=== PATIENT | male | born 1940 | race Caucasian/White ===

== ENCOUNTER → 2018-11-13 09:35 | Outpatient (CLI) | payer MEDICARE, BC | END | disposition home or self-care (01) | LOC: D.HCCARDIO 09:35 | PROVIDERS: ATTEND Internal Medicine Cardiovascular Disease | DX: I25.10 Atherosclerotic heart disease of native coronary artery without angina pectoris (principal) ==

== ENCOUNTER 2018-11-28 07:22 | Outpatient (CLI) | payer MEDICARE, BC ==
[~2018-11-28] VITALS: Ht 165.1 cm; Wt 61.4 kg
--- NOTE | ~2018-11-28 | HEMODYNAMI ---
PATIENT:COLT DEVINE MEDICAL RECORD: [id number] : 36 LOCATION:[facility] ADMISSION DATE: 11/28/18 Generatedon:11/28/201810:04 Patient name: COLT DEVINE Patient #: [id number] SSN: : 1940 Date of study: 11/28/2018 Page: Of Hemodynamic Procedure Report Patient Data Patient Demographics Procedure consent was obtained First Name: COLT Gender: Male Last Name: SYBIL : 1940 Patient #: [id number] Age: 78 year(s) Race: Additional ID: [id number] Contact details Address: [address] [place] [address] State: [place] City: [facility] Zip code: [address] Past Medical History Performed procedures and imaging results Date Procedure Procedure Results Comments Stress testing Positive->Intermediate with SPECT MPI risk History of disease Date Diagnosis Comments PVD Allergies: No known allergies Admission Admission Data Admission Date: 11/28/2018 Admission Time: 7:22 Height (in.): 65 BSA: 1.67 (m2) Height (cm.): 165.1 BMI: 22.46 (kg/m2) Weight (lbs.): 135 Weight (kg.): 61.23 Lab Results Lab Result Date: 11/28/2018 Lab Result Time: 0:00 Biochemistry Name Units Result Min Max BUN mg/dl 24 --(----)-* 7 18 Creatinine mg/dl 1 --(--*-)-- 0.6 1.3 Coagulation Name Units Result Min Max INR units 1.7 --(----)-* 0.85 1.17 Procedure Procedure Types Cath Procedure Diagnostic Procedure [facility] w/Coronaries PCI Procedure Coronary Stent Coronary Stent Initial Procedure Description Procedure Date Procedure Date: 11/28/2018 Procedure Start Time: 9:25 Procedure End Time: 10:03 Procedure Staff Name Function Richard Chavarria MD Performing Physician Fernando Sinclair RT Monitor Lisa Reaves RN Nurse Meche Quach RT Scrub Procedure Data Cath Procedure Fluoroscopy Diagnostic fluoroscopy Total fluoroscopy Time: 5.3 time: 5.3 min min Diagnostic fluoroscopy Total fluoroscopy dose: 738 dose: 738 mGy mGy Contrast Material Contrast Material Type Amount (ml) Isovue 300 103 Entry Location Entry Primary Successful Side Size Upsize Upsize Entry Closure Succes sful Closure Location (Fr) 1 (Fr) 2 (Fr) Remarks Device Remarks Femoral Right 5 Fr 6 Fr Exoseal artery Short Estimated blood loss: 10 ml Diagnostic catheters Device Type Used For End Catheter Placement MULTIPACK JL 4.0 5Fr Procedure catheter MULTIPACK 3DRC 5Fr Procedure catheter MULTIPACK Pigtail 5 Fr Procedure catheter MULTIPACK 3DRC 5Fr Procedure catheter Procedure Medications Medication Administration Route Dosage 0.9% NaCl I.V. 100 ml/hr Oxygen etCO2 Nasal cannula 2 l/min Lidocaine 2% added to field 20 Heparin Flush Bag added to field 2 bags (1000units/500ml NS) Versed I.V. 2 mg Fentanyl I.V. 50 mcg Heparin Bolus I.V. 6000 units Nitroglycerin IC/IA I.C. 100 mcg Plavix P.O. 600 mg Hemodynamics Rest BSA: 1.67 (m2) O2 Consumption: Estimated: 199.15 (ml/min) O2 Consumption indexed : Estimated:119.25 (ml/min/m) Heart Rate: 83 (bpm) Pressure Samples Time Site Value (mmHg) Purpose Heart Use Rate(bpm) 9:32 LV 145/12,18 Snapshot 70 9:33 AO 145/66(99) Pullback 72 9:33 LV 138/9,22 Pullback 72 Gradients Valve Time Site 1 Site 2 Mean SEP/DFP Peak To Heart Use (mmHg) (sec/min) Peak Rate (mmHg) (bpm) Aortic 9:33 LV AO 0 6 0 72 138/9,22 145/66(99) Calculations Valve P-P Mean Valve Index Valve Source Name Gradient Area Flow (cm2) Aortic 0 0 0 0 Snapshots Pre Cath Intra NCS Post Cath Vital Signs Time Heart Resp SPO2 etCO2 NIBP (mmHg) Rhythm Pain Sedation Rate (ipm) (%) (mmHg) Status Level (bpm) 9:12:05 85 13 100 35.7 163/95(134) NSR 0 (11) 10(A) , No pain 9:16:24 85 18 100 30.6 150/74(124) NSR 0 (11) 10(A) , No pain 9:21:47 82 19 100 30 143/78(109) NSR 0 (11) 10(A) , No pain 9:25:57 81 19 98 29.6 134/81(112) NSR 0 (11) 9(A) , No pain 9:30:05 84 19 99 33.7 135/79(102) NSR 0 (11) 9(A) , No pain 9:34:17 69 14 99 9.6 137/63(111) NSR 0 (11) 9(A) , No pain 9:38:29 69 17 99 11.1 144/70(101) NSR 0 (11) 9(A) , No pain 9:42:45 69 22 100 39.4 126/64(109) NSR 0 (11) 9(A) , No pain 9:46:55 69 21 100 40.2 124/59(100) NSR 0 (11) 9(A) , No pain 9:50:58 69 14 100 36.4 137/78(109) NSR 0 (11) 10(A) , No pain 9:55:10 69 10 100 37.2 138/70(113) NSR 0 (11) 10(A) , No pain 9:59:18 79 12 100 36.5 138/80(117) NSR 0 (11) 10(A) , No pain Medications Time Medication Route Dose Verified Delivered Reason Notes Effectiveness by by 9:11:12 0.9% NaCl I.V. 100 Richard Lisa used for ml/hr Deon Reaves kier boiler 9:11:19 Oxygen etCO2 2 Richard Lisa used for Nasal l/min Deon Reaves procedure cannula RN 9:11:24 Lidocaine 2% added 20ml Richard Richard for local to vial Deon Chavarria MD anesthetic field 9:11:28 Heparin Flush added 2 Richard Richard used for Bag to bags Deon Chavarria MD procedure (1000units/500ml field NS) 9:22:35 Versed I.V. 2 mg Richard Lisa for sedation Deon Reaves RN 9:22:45 Fentanyl I.V. 50 Richard Lisa for sedation mcg Chavarria MD Jean Paul RN 9:41:41 Heparin Bolus I.V. 6000 Richard Lisa for verifi ed units Deon Reaves anticoagulation with DrWatson Chavarria 9:42:45 Nitroglycerin I.C. 100 Richard Richard for IC/IA mcg Deon Chavarria MD vasodilation 9:53:02 Plavix P.O. 600 Richard Resendezyla for mg Deon Reaves antiplatelet RN therapy Procedure Log Time Note 8:58:41 Informed consent obtained and on chart 8:58:45 Diagnostic Cath Status : Elective 9:00:35 Meche Quach RT(R) sent for patient. Start room use. 9:00:37 Time tracking: Regular hours (M-F 7:00 - 5:00) 9:00:43 Plan of Care:Hemodynamics will remain stable., Cardiac rhythm will remain stable., Comfort level will be maintained., Respiratory function will remain adequate., Patient/ family verbilizes understanding of procedure., Procedure tolerated without complication., Recovers from procedure without complications.. 9:01:18 Lab Result : BUN 24 mg/dl 9::18 Lab Result : INR 1.7 units 9::18 Lab Result : Creatinine 1 mg/dl 9:09:20 Patient allergic to No known allergies 9:09:38 Patient Height : 65 inches 9:09:45 Patient Weight : 135 lbs 9:10:59 Vital chart was started 9:11:12 0.9% NaCl 100 ml/hr I.V. was administered by Lisa Reaves RN; used for procedure; 9:11:19 Oxygen 2 l/min etCO2 Nasal cannula was administered by Lisa Reaves RN; used for procedure; 9:11:24 Lidocaine 2% 20ml vial added to field was administered by Richard Chavarria MD; for local anesthetic; 9:11:28 Heparin Flush Bag (1000units/500ml NS) 2 bags added to field was administered by Richard Chavarria MD; used for procedure; 9:12:44 Patient received from Pre/Post Procedure Room to [facility] 2 Alert and oriented. Tansferred to table in Supine position. 9:12:46 Warm blankets applied, and gaurang hugger turned on for patient comfort. 9:12:47 Correct patient and procedure confirmed by team. 9:12:48 ECG and BP/O2 sat monitors applied to patient. 9:12:49 Baseline sample Acquired. 9:12:54 Rhythm: sinus rhythm 9:12:56 Full Disclosure recording started 9:13:47 H&P Date Dictated: 11/13/2018 Within 30 days and on chart., H&P Addendum completed by physician on day of procedure. (MUST COMPLETE FOR ALL OUTPATIENTS). 9:14:28 Pre-procedure instructions explained to patient. 9:14:30 Pre-op teaching completed and patient verbalized understanding. 9:14:36 Family unavailable. 9:14:42 Is the patient allergic to Iodine/contrast media? No. 9:14:50 Is patient on blood thinner?Yes 9:14:55 ACC The patient was administered the following blood thiners within the last 24 hours: Coumadin 9:14:59 Patient diabetic? No. 9:15:01 ----Pre-sedation anethsthesia assessment.---- 9:15:04 Previous problem with sedation/anesthesia? No ? 9:15:05 Snore? Yes 9:15:08 Sleep apnea? No 9:15:09 Deviated septum? No 9:15:10 Opens mouth fully? Yes 9:15:11 Sticks out tongue? Yes 9:15:13 Airway obstruction? No ? 9:15:16 Dentures? No ? 9:16:35 Pre procedure: right dorsailis pedis pulse Doppler 9:16:42 Modified Jerad's test Ulnar < 7 seconds 9:16:46 Patient pain scale 0/10 ?. 9:17:06 IV patent on arrival in right antecubital with 0.9% NaCl at KVO. 9:17:12 Lab results completed and on chart. 9:17:17 Right Radial & Right Groin area was prepped with chlora-prep and draped in sterile fashion 9:17:28 Alarms reviewed by R. N. 9:17:29 Sharps counted by scrub and verified by R.N. 9:17:39 Use device set Radial Dx or PCI 9:17:42 ACIST Syringe (44653) opened to sterile field. 9:17:43 Medline Cath Pack ([id number]) opened to sterile field. 9:17:44 Bag Decanter (2002) opened to sterile field. 9:17:45 DIAGNOSTIC WIRE .035 260cm J wire (801851) opened to sterile field. 9:17:46 ACIST Hand Control (79332) opened to sterile field. 9:17:46 ACIST Manifold (18733) opened to sterile field. 9:17:50 Tegaderm 4 x 4 (1626W) opened to sterile field. 9:17:51 MBrace Wrist Support ([id number]) opened to sterile field. 9:17:52 NEEDLE Cook 21G 4cm Radial (W69007) opened to sterile field. 9:17:54 SHEATH 6FR Slender (77-1060) opened to sterile field. 9:21:20 Physician arrived 9:: --------ALL STOP TIME OUT------ 9::21 Final Timeout: patient, procedure, and site verified with staff and physician. All members of the team are in agreement. 9:21:24 Right groin site verified by team. 9:21:42 Maximum allowable Isovue 300 dose 300ml. Physician notified. (300ml for normal creatinines. For patients with creatinine of 1.7 or higher multiply weight(kg) x 5 divided by creatinine.) 9::47 Fire Safety Assessment: A--An alcohol-based skin anteseptic being used preoperatively., C--Open oxygen or nitrous oxide is being used., D--An ESU, laser, or fiber-optic light is being used. 9::54 Physical assessment completed. ASA score P 2 - A patient with mild systemic disease as per Richard Chaavrria MD. 9:21:59 Sedation plan: IV Moderate Sedation Medication:Versed, Fentanyl 9:22:31 Zero performed for pressure channel P1 9::35 Versed 2 mg I.V. was administered by Lisa Reaves RN; for sedation; 9:22:35 Zero performed for pressure channel P1 9::45 Fentanyl 50 mcg I.V. was administered by Lisa Reaves RN; for sedation; 9::47 SHEATH 5FR [place] (ZBX071) opened to sterile field. 9::47 Procedure started. 9:25:07 Local anesthetic to right femoral artery with Lidocaine 2% by Richard Chavarria MD.INITIAL ACCESS ONLY 9:27:15 A 5 Fr sheath was inserted into the Right Femoral artery 9:27:29 Use device set Multipack Set 9:27:32 DIAGNOSTIC Multipack 5Fr catheter set (OL3094) opened to sterile field. 9:27:47 A MULTIPACK JL 4.0 5Fr catheter was advanced over the wire and used for Procedure. 9:28:30 LCA angiography performed. 9:29:25 Catheter removed. 9:29:51 A MULTIPACK 3DRC 5Fr catheter was advanced over the wire and used for Procedure. 9:31:02 RCA angiography performed. 9:32:01 Catheter removed. 9:32:07 A MULTIPACK Pigtail 5 Fr catheter was advanced over the wire and used for Procedure. 9:32:44 LV hemodynamics recorded. 9:32:45 LV gram done using SUTTON 9:32:51 EF : 50 % 9:35:20 Catheter removed. 9:35:35 A MULTIPACK 3DRC 5Fr catheter was advanced over the wire and used for Procedure. 9:37:36 SHEATH 6FR [place] (JQH514) opened to sterile field. 9:37:37 TUBING High Pressure Extension Tubing (Deon) (TQ4938G) opened to sterile field. 9:37:38 BMW 300cm [place] 2 J wire ([id number]) opened to sterile field. 9:37:40 INFLATOR Merit BasixCompak (ZF9015) opened to sterile field. 9:38:01 GUIDE 6FR 3DRC SH catheter ([id number]) opened to sterile field. 9:38:15 Sheath upsized to a 6 Fr Short. 9:38:22 Proceeding to intervention. 9:38:45 Pre PCI Site: [place] pRCA has 80% stenosis. 9:38:55 6 Fr 3DRC SH guide catheter was inserted over the wire 9:41:00 BMW wire advanced. 9:41:41 Heparin Bolus 6000 units I.V. was administered by Lisa Reaves RN; for anticoagulation; verified with Dr. Chavarria 9:42:34 Wire advanced across lesion. 9:42:45 Nitroglycerin IC/IA 100 mcg I.C. was administered by Richard Chavarria MD; for vasodilation; 9:42:52 OSTIAL RCA 9:48:17 Place stent Inflation Number: 1 A INTEGRITY OTW 2.5 X 8 stent ([id number]) was prepped and advanced across the Prox RCA 80. The stent was deployed at 13 CARLOS for 0:10 (min:sec) 0. 9:49:32 EXOSEAL 6Fr (EX600) opened to sterile field. 9:49:36 Wire removed. 9:49:39 Stent catheter was removed intact over wire. 9:49:39 Guide catheter removed. 9:49:52 Sheath removed intact; hemostasis achieved with Exoseal to the Right Femoral artery. 9:50:20 Procedure ended.(Physican Out) 9:50:35 Fluoroscopy time 05.30 minutes. 9:50:41 Flurop Dose total: 738 9:50:41 Fluoroscopy dose: 738 mGy 9:50:47 Contrast amount:Isovue 300 103ml. 9:52:46 Sharps counted by scrub and verified by R.N. 9:53:01 Procedure type changed to Cath procedure, Diagnostic procedure, LHC, LHC w/Coronaries, PCI procedure, Coronary Stent, Coronary Stent Initial 9:53:02 Plavix 600 mg P.O. was administered by Lisa Reaves RN; for antiplatelet therapy; 9:57:23 Insertion/operative site no bleeding no hematoma. 9:57:33 Post-op/insertion site Right Femoral artery dressed using a 4 x 4 and Tegaderm. 9:57:39 Post right femoral artery:stable 9:57:52 Post-procedure physical assessment completed. ASA score P 2 - A patient with mild systemic disease as per Richard Chavarria MD. 9:58:04 Post procedure rhythm: sinus rhythm , paced 9:58:09 Estimated blood loss: 10 ml 9:58:11 Post procedure instruction explained to patient.Patient verbalizes understanding. 9:58:18 Patient needs reinforcement of post procedure teaching. 9:58:19 Procedure and supply charges have been captured, reviewed, submitted and are correct. 10:01:15 Post right femoral artery:oozing 10:01:30 FEMSTOP Gold ([id number]) opened to sterile field. 10:03:12 Femstop placed over the right femoral artery at 120 mmHg. Hemostasis achieved. 10:03:30 Vital chart was stopped 10:03:32 See physician's report for complete and final results. 10:03:35 Report given to Pre/Post Procedure Room. 10:03:38 Patient transfered to Pre/Post Procedure Room with Stretcher. 10:03:41 Procedure ended. 10:03:41 Full Disclosure recording stopped 10:03:45 End room use (Document Last) Intervention Summary Intervention Notes Time ActionType Lesion and Equipment Action# Pressure Duration Attributes Used 9:48:17 Place stent Prox RCA INTEGRITY 1 13 00:10 OTW 2.5 X 8 stent ([id number]) Device Usage Item Name Manufacture Quantity Catalog Hospital Part Current Minimal Lot# / Number Charge Number Stock Stock Serial# Code ACIST Acist 1 72307 674757 760015 894119 20 Syringe Medical (79873) Systems Inc Medline Medline 1 [id number] 271569 50424 634786 5 Cath Pack ([id number]) Bag Microtek 1 2001S 605207 63095 669129 5 Decanter Medical Inc. () DIAGNOSTIC [place] 1 460678 711157 660802 479995 30 WIRE .035 260cm J wire (527977) ACIST Hand Acist 1 78158 917465 992463 892018 5 Control Medical (47627) Systems Inc ACIST Acist 1 64667 271656 379923 801883 5 Manifold Medical (21373) Systems Inc Tegaderm 4 3M 1 1626W 086194 859111 852874 5 x 4 (1626W) MBrace Advanced 1 140-0250-00 338542 31992 413492 5 Wrist Vascular Support Dynamics ([id number]) NEEDLE Cook Cook Medical 1 W50926 870026 244560 840723 5 21G 4cm Radial (I44544) SHEATH 6FR Terumo 1 [id number] 278840 026481 022472 5 Slender (80-1060) DIAGNOSTIC Cardinal 1 SG0306 269397 75277 291488 30 Multipack Health 5Fr catheter set (RZ4223) MULTIPACK Cardinal 1 607517 5 JL 4.0 5Fr Health catheter MULTIPACK Cardinal 1 613884 5 3DRC 5Fr Health catheter MULTIPACK Cardinal 1 853126 5 Pigtail 5 Health Fr catheter SHEATH 6FR Terumo 1 FMC811 833144 852579 067356 40 [place] (FXT921) TUBING High Merit 1 [id number] 324093 66536 649811 10 Pressure Medical Extension Tubing (Chavarria) ([id number]) BMW 300cm [place] 1 [id number] 426255 913422 967798 5 [place] 2 Vascular J wire (6952256T) INFLATOR Merit 1 DO2296 568973 095079 413364 15 [facility] Medical BasixCompak (XA7447) GUIDE 6FR Medtronic 1 [id number] 955328 849882 737073 1 3DRC catheter ([id number]) INTEGRITY Medtronic 1 [id number] 581259 315020 422164 0 [id number] OTW 2.5 X 8 stent ([id number]) EXOSEAL 6Fr Cardinal 1 EX600 132196 311018 011561 10 (EX600) Health SHEATH 5FR Terumo 1 OYS841 684569 690951 092542 5 [place] (DGU295) FEMSTOP [place] 1 F81130 073438 662517 578529 5 Gold (Y54927) Signature Audit [place] Stage Time Signature Unsigned Intra-Procedure 11/28/2018 Fernando Sinclair 10:04:12 AM RT(R) (CV) Signatures Monitor : Fernando Sinclair RT Signature : Date : Time : [place] 302800 [place] [id number]
[2018-11-28] MEDS ORDERED: LEVO-T25 MCG PO (07:47)
[2018-11-28] MEDS ORDERED: TOPROL XL50 MG PO (07:47)
[2018-11-28] MEDS ORDERED: COZAAR100 MG PO (07:48)
[2018-11-28] MEDS ORDERED: JANTOVEN10 MG PO (07:49)
[2018-11-28] MEDS ORDERED: JANTOVEN5 MG PO (07:52)
[2018-11-28] MEDS ORDERED: LIPITOR20 MG PO (07:53)
[2018-11-28] MEDS ORDERED: BAYER CHEWABLE81 MG PO (07:53)
[2018-11-28] MEDS ORDERED: MULTI-DAY VITAM1 TAB PO (07:54)
[2018-11-28 08:07] VITALS: BP 142/88; Ht 165.1 cm; Wt 61.4 kg
[2018-11-28 08:11] LABS: BASOPHILS 0.3 % (0-2); HEMATOCRIT 37.7 % (42.0-54.0); HEMOGLOBIN 12.7 g/dL (13.5-17.5); IMMATURE GRANULOCYTES 0.2 % (0-5); LYMPHOCYTES 35.9 % (15-50); MCH 32.6 pg (26.0-34.0); MCHC 33.7 g/dL (31.0-37.0); MCV 96.9 fL (80.0-100.0); MEAN PLATELET VOLUME 10.8 fL (7.4-10.4); MONOCYTES 7.5 % (2-11); NEUTROPHILS 54.1 % (40-80); PLATELET COUNT 167 10x3/uL (130-400); RBC 3.89 10x6/uL (4.20-6.10); RDW 13.9 % (11.5-14.5)
[2018-11-28 08:25] LABS: CALC OSMOLALITY 281 mosm/kg (275-300); CALCIUM 10.1 mg/dL (8.5-10.1); CARBON DIOXIDE 26.8 mmol/L (21.0-32.0); CHLORIDE - SERUM 104 mmol/L (98-107); GLUCOSE 98 mg/dL (74-106); POTASSIUM - SERUM 4.7 mmol/L (3.5-5.1); SODIUM 139 mmol/L (136-145); UREA NITROGEN 24 mg/dL (7-18); eGFR NON AFRICAN AMERICAN 76 mL/min (90-120)
[2018-11-28 08:45] LABS: INR 1.72 (0.85-1.17); PROTIME 19.5 SECONDS (11.6-15.0)
--- NOTE | 2018-11-28 10:12 | NUR ---
RECEIVED PT BY STRETCHER. PLACED ON MONITORS. ASSESSMENT COMPLETED. RIGHT GROIN WITH FEMSTOP AT 147mmHg. RIGHT PEDAL PULSE WEAK, BUT PALPABLE. RIGHT LOWER EXT WARM TO TOUCH. VSS AT THIS TIME. CALL LIGHT WITHIN REACH.
[2018-11-28] MEDS ORDERED: PLAVIX75 MG PO (10:16)
--- NOTE | 2018-11-28 10:20 | NUR ---
CALLED PT'S AND UPDATED HER ON PT'S STATUS AND HIS DISCHARGE TIME.
--- NOTE | 2018-11-28 10:30 | NUR ---
PT RESTING COMFORTABLY AT THIS TIME. RIGHT GROIN WITH FEMSTOP IN PLACE AT 147mmHg. TOLERATING WELL. VSS. CALL LIGHT WITHIN REACH.
--- NOTE | 2018-11-28 11:00 | NUR ---
PT C/O MILD NAUSEA. GIVEN ZOFRAN. WILL CONTINUE TO MONITOR. RIGHT GROIN SITE WITH FEMSTOP. FEMSTOP PRESSURE DECREASED TO 120mmHg. PT TOLERATING WELL. NO BLEEDING/HEMATOMA NOTED.
--- NOTE | 2018-11-28 11:12 | NUR ---
PT REPORTS THAT HIS NAUSEA HAS IMPROVED. RIGHT FEMSTOP WEANED DOWN TO 100mmHg. TOLERATING WELL. NO BLEEDING/HEMATOMA NOTED. VSS.
--- NOTE | 2018-11-28 11:30 | NUR ---
FEMSTOP WEANED DOWN TO 80mmHg. TOLERATED WELL. NO BLEEDING/HEMATOMA NOTED
--- NOTE | 2018-11-28 11:45 | NUR ---
FEMSTOP WEANED TO 60mmHg. TOLERATING WELL. RIGHT GROIN SOFT. NO BLEEDING/HEMATOMA NOTED.
--- NOTE | 2018-11-28 12:00 | NUR ---
RIGHT GROIN FEMSTOP WEANED DOWN TO 30mmHg. TOLERATING WELL. NO BLEEDING/HEMATOMA NOTED. VSS.
--- NOTE | 2018-11-28 12:25 | NUR ---
FEMSTOP TO RIGHT GROIN REMOVED. NO HEMATOMA NOTED. DRESSING APPLIED. PT STILL IN SUPINE POSTIION. WILL MONITOR.
--- NOTE | 2018-11-28 13:05 | NUR ---
PT'S HEAD OF BED INC TO 30 DEGREES. RIGHT GROIN DRESSING C/D/I. NO S/S OF HEMATOMA NOTED. SET UP WITH SANDWICH TRAY AND DRINK. DENIES NAUSEA. CALL LIGHT WITHIN REACH.
--- NOTE | 2018-11-28 13:40 | NUR ---
RIGHT AC PIV D/C'D WITH CATH TIP INTACT. PT TOLERATED WELL. INSTRUCTED PT TO GET UP AND DRESSED AT THIS TIME. RIGHT GROIN DRESSING C/D/I. NO S/S OF HEMATOMA NOTED.
--- NOTE | 2018-11-28 13:46 | NUR ---
PT AMBULATED TO RESTROOM. VOIDED WITHOUT DIFFICULTY.
--- NOTE | 2018-11-28 13:50 | NUR ---
DISCUSSED DISCHARGE INSTRUCTIONS WITH PT AND PT'S FAMILY. THEY VOICED UNDERSTANDING.
--- NOTE | 2018-11-28 13:59 | NUR ---
PT TAKEN OUT TO VEHICLE BY WHEELCHAIR. NO S/S OF DISTRESS NOTED. ALL BELONGINGS AND PAPERWORK IN HAND.
== END 2018-11-28 14:00 | disposition home or self-care (01) ==
LOC: D.CATH 07:22
PROVIDERS: ATTEND Internal Medicine Cardiovascular Disease
DX: I20.9 Angina pectoris, unspecified (principal); R94.30 Abnormal result of cardiovascular function study, unspecified; Z01.812 Encounter for preprocedural laboratory examination